=== PATIENT | female | born 1960 | race Hispanic/Latino ===

== ENCOUNTER 2018-04-07 21:28 | Emergency (ER) | payer BC, OTHER ==
[2018-04-07 21:37] VITALS: BP 124/82; PULSE 78; RESP 18; TEMP 97.4; O2SAT 100
[2018-04-07] MEDS ORDERED: Absorbable Gelatin Sponge Size 12-7 ONE (23:45)
[2018-04-07] MEDS ORDERED: Povidone Iodine Topical 10% Sol ONE (23:47)
--- NOTE | 2018-04-07 23:53 | ED PDOC ---
Upper Extremity Pain/Injury Time Seen by Provider: 04/07/18 22:50 Chief Complaint (Nursing): Abnormal Skin Integrity Chief Complaint (Provider): left 5th digit laceration History Per: Patient History/Exam Limitations: no limitations Onset/Duration Of Symptoms: Hrs (18) Current Symptoms Are (Timing): Still Present Additional Complaint(s): 57 y/o female presents for evaluation of laceration to left 5th digit x 18 hours. Patient states she was cutting an apple and sliced the tip of her finger off. Patient states she applied a pressure bandage and when she went to take it off tonight it was still bleeding. Denies numbness/weakness left upper extremity, limitation of movement. Tetanus up to date. Past Medical History Reviewed: Historical Data, Nursing Documentation, Vital Signs Vital Signs: Last Vital Signs Temp 97.4 F L 04/07/18 21:34 Pulse 78 04/07/18 21:34 Resp 18 04/07/18 21:34 BP 124/82 04/07/18 21:34 Pulse Ox 100 04/07/18 21:34 - Medical History PMH: No Chronic Diseases - Surgical History Surgical History: No Surg Hx - Family History Family History: States: No Known Family Hx - Allergies Allergies/Adverse Reactions: Allergies Allergy/AdvReac Type Severity Reaction Status Date / Time codeine Allergy NAUSEA Verified 04/07/18 21:34 Penicillins Allergy RASH Verified 04/07/18 21:34 Review of Systems ROS Statement: Except As Marked, All Systems Reviewed And Found Negative Musculoskeletal: Positive for: Hand Pain (left hand 5th digit) Physical Exam - Reviewed Nursing Documentation Reviewed: Yes Vital Signs Reviewed: Yes - Physical Exam Appears: Positive for: Well, Non-toxic, No Acute Distress Extremity: Positive for: Normal ROM, Other (2cm skin avulsion distal palmar aspect left hand 5th digit. FROM. Distal NV/motor intact) - ECG O2 Sat by Pulse Oximetry: 100 - Other Rad left hand 5th digit X-Ray: Viewed By Me X-Ray Interpretation: no acute findings - Progress ED Course And Treament: Tylenol PO, xray Left hand 5th digit soaked in sterile water/betadine solution Gelfoam applied, telfa/cling applied Patient educated on wound care Advised follow up PMD/hand specialist Return precautions given Disposition - Clinical Impression Clinical Impression: Avulsion, finger tip - Patient ED Disposition Is Patient to be Admitted: No Counseled Patient/Family Regarding: Studies Performed, Diagnosis, Need For Followup - Disposition Referrals: Elmer Aranda MD [Medical Doctor] - Disposition: Routine/Home Disposition Time: 00:47 Condition: IMPROVED Instructions: Wound Care
--- NOTE | 2018-04-08 11:29 | RAD ---
Date of service: 04/08/2018 PROCEDURE: Left small finger radiographs. HISTORY: finger tip avulsion COMPARISON: None. TECHNIQUE: AP radiograph of the left hand, as well as spot oblique and lateral images of left small finger were obtained. FINDINGS: LEFT SMALL FINGER: No osseous abnormality in or around the 5th digit traumatic site. JOINTS: Normal. SOFT TISSUES: There is soft tissue laceration/partial avulsion at the tip of the 5th digit. Grossly the nail portions visualized appear intact. No bony osseous avulsion seen. No osseous destruction seen. No dislocation. No radiopaque foreign body noted. There is some overlying bandaging present. OTHER FINDINGS: None. IMPRESSION: Soft tissue avulsion 5th digit tip. No osseous effects appreciated
== END 2018-04-08 01:05 | disposition home or self-care (01) ==
LOC: H.ER 21:28
DX: S61.207A Unspecified open wound of left little finger without damage to nail, initial encounter (principal); W26.0XXA Contact with knife, initial encounter; Y92.89 Other specified places as the place of occurrence of the external cause; Z88.0 Allergy status to penicillin